=== PATIENT | female | born 1945 | race Hispanic/Latino ===

== ENCOUNTER 2019-06-19 14:42 | Emergency (ER) | payer MEDICARE ==
[~2019-06-19 14:42] MED LIST: ALPR0.25 PO
[2019-06-19 15:01] LABS: BASOPHILS % (AUTO) 0.6 % (0.0-5.0); EOSINOPHILS % (AUTO) 1.1 % (0.0-8.0); HEMATOCRIT 41.1 % (36-48); LYMPHOCYTES % (AUTO) 28.2 % (21.0-51.0); MEAN CORPUSCULAR HEMOGLOBIN 31.5 pg (27.0-33.0); MEAN CORPUSCULAR HGB CONC 34.5 g/dL (32.0-36.0); MEAN CORPUSCULAR VOLUME 91.1 fL (79-99); MONOCYTES % (AUTO) 7.8 % (3.0-13.0); PLATELET COUNT (AUTO) 148 K/uL (130-400); RED BLOOD CELL COUNT(AUTO) 4.51 MIL/uL (4.00-5.50); WHITE BLOOD COUNT (AUTO) 7.2 K/uL (4.8-10.8)
[2019-06-19 15:23] LABS: CREATININE 0.9 mg/dL (0.5-1.5); POTASSIUM 3.8 mmol/L (3.5-5.1)
[2019-06-19 16:00] LABS: APPEARANCE,URINE Clear (CLEAR); BILIRUBIN,URINE Negative (NEGATIVE); COLOR,URINE Yellow (YELLOW); GLUCOSE, URINE (UA) Negative (NEGATIVE); KETONES,URINE Negative (NEGATIVE); LEUKOCYTE ESTERASE ,URINE Trace (NEGATIVE); NITRATE,URINE Negative (NEGATIVE); OCCULT BLOOD,URINE Negative (NEGATIVE); PH,URINE 6.5 (5.0-8.0); PROTEIN,URINE Negative (NEGATIVE)
[2019-06-19 16:08] LABS: RBC,URINE None Seen /HPF (0-1); WBC,URINE 0-1 /HPF (0-1)
[2019-06-19 16:09] LABS: BACTERIA,URINE Few /HPF (None Seen); SQUAMOUS EPITHELIAL CELL,UR 0-2 /HPF (0-2)
[2019-06-19] MEDS ORDERED: LEVOFLOXACIN 500 MG/D5W 100 ML 100 ML ONE (17:11)
== END 2019-06-19 17:56 | disposition home or self-care (01) ==
LOC: EDH 14:42
DX: K57.32 Diverticulitis of large intestine without perforation or abscess without bleeding (principal); Z90.49 Acquired absence of other specified parts of digestive tract; Z90.710 Acquired absence of both cervix and uterus
CPT/HCPCS: 36415; 74176; 80048; 81001; 85025; 96365; 96367; 96375; 99284; J1956

== ENCOUNTER 2019-10-21 04:38 | Observation (INO) | payer MEDICARE ==
[~2019-10-21] VITALS: Ht 154.9 cm; Wt 59.0 kg
[2019-10-21 05:03] LABS: BASOPHILS % (AUTO) 0.7 % (0.0-5.0); EOSINOPHILS % (AUTO) 2.7 % (0.0-8.0); LYMPHOCYTES % (AUTO) 48.3 % (21.0-51.0); MEAN CORPUSCULAR HEMOGLOBIN 31.4 pg (27.0-33.0); MEAN CORPUSCULAR VOLUME 92.1 fL (79-99); MONOCYTES % (AUTO) 8.8 % (3.0-13.0); NEUTROPHILS % (AUTO) 39.4 % (40.0-77.0); PLATELET COUNT (AUTO) 114 K/uL (130-400); RED BLOOD CELL COUNT(AUTO) 4.56 MIL/uL (4.00-5.50); RED CELL DISTRIBUTION WIDTH 12.3 % (11.0-15.5); WHITE BLOOD COUNT (AUTO) 6.7 K/uL (4.8-10.8)
[2019-10-21 05:26] LABS: CREATININE 0.8 mg/dL (0.5-1.5); POTASSIUM 4.3 mmol/L (3.5-5.1)
[2019-10-21 05:31] LABS: ALBUMIN 4.1 g/dL (3.5-5.0); BILIRUBIN,TOTAL 0.6 mg/dL (0.2-1.0); TOTAL PROTEIN, SERUM 7.4 g/dL (6.0-8.3)
[2019-10-21] MEDS ORDERED: LOPERAMIDE 1 MG/7.5 ML UDCUP PO PRN (10:00)
[2019-10-21] MEDS ORDERED: LACTULOSE 20 GM/30 ML UDCUP PO PRN (10:00)
[2019-10-21] MEDS ORDERED: ONDANSETRON HCL 4 MG/2 ML VIAL IVP PRN (10:00)
[2019-10-21] MEDS ORDERED: HYDRALAZINE HCL 20 MG/ML VIAL IV PRN (10:00)
[2019-10-21] MEDS ORDERED: ACETAMINOPHEN 325 MG TAB PO PRN (10:00)
[2019-10-21 10:12] LABS: APPEARANCE,URINE Clear (CLEAR); BILIRUBIN,URINE Negative (NEGATIVE); COLOR,URINE Yellow (YELLOW); GLUCOSE, URINE (UA) Negative (NEGATIVE); KETONES,URINE Negative (NEGATIVE); LEUKOCYTE ESTERASE ,URINE Trace (NEGATIVE); NITRATE,URINE Negative (NEGATIVE); OCCULT BLOOD,URINE Negative (NEGATIVE); PH,URINE 6.5 (5.0-8.0); PROTEIN,URINE Negative (NEGATIVE)
[2019-10-21 10:19] LABS: BACTERIA,URINE Rare /HPF (None Seen); RBC,URINE 0-1 /HPF (0-1); SQUAMOUS EPITHELIAL CELL,UR Rare /HPF (0-2); WBC,URINE 0-1 /HPF (0-1)
[2019-10-21] MEDS ORDERED: ASPIRIN 81MG TAB.CHEW ONE (10:20)
[2019-10-21] MEDS ORDERED: PANTOPRAZOLE SODIUM 40 MG TABLET.DR ONE (10:20)
[2019-10-21] MEDS ORDERED: PANTOPRAZOLE SODIUM 40 MG TABLET.DR PO SCH (10:30)
[2019-10-21] MEDS ORDERED: ENOXAPARIN SODIUM 30 MG/0.3 ML SQ SCH (10:45)
[2019-10-21] MEDS ORDERED: ACETAMINOPHEN 325 MG TAB ONE ×2 (12:12→19:54)
--- NOTE | 2019-10-21 12:40 | NUR ---
DYSPHAGIA EVAL COMPLETED. -S/S OF ASPIRATION. RECOMMEND REGULAR TEXTURE, THIN LIQUIDS; PILLS WHOLE WITH LIQUIDS. Addendum: 10/21/19 at 1413 by VAMSI SYLVESTER, [facility] Amended: Links added.
--- NOTE | 2019-10-21 13:00 | NUR ---
COGNITIVE-LINGUISTIC EVAL COMPLETED. WITHIN FUNCTIONAL LIMITS. EVALUATION: Pt AAOX3. Pt REQUESTS WANTS AND NEEDS INDEPENDENTLY. Pt INTELLIGIBLE AT 100% ACCURACY TO THE UNFAMILIAR LISTENER. Pt COMMUNICATING AT CONVERSATIONAL LEVEL WITH NO DEFICITS IDENTIFIED AT THIS TIME. Pt COMPLETED COGNITIVE-LINGUISTIC EVALUATION TARGETING: ORIENTATION, ATTENTION/CONCENTRATION, MEMORY (IMMEDIATE, SHORT-TERM AND LONG-TERM), PROBLEM SOLVING, LOGIC/REASONING/INFERENCE, THOUGHT ORGANIZATION, FUNCTIONAL MATH AND TELLING TIME. Pt ABLE TO COMPLETE TASKS WITH CORRECT AND TIMELY ANSWERS TO ALL SECTIONS. G-CODES SPOKEN LANGUAGE EXPRESSION: [id number] Addendum: 10/21/19 at [address] [facility] Amended: Links added.
--- NOTE | 2019-10-21 13:35 | NUR ---
patient still in ER,department awaiting for patient to be transferred to medical floor in order to be able to initiate skilled Physical Therapy Evaluation. Addendum: 10/21/19 at 1336 by LIAM THAYER, PT PT Amended: Links added.
[2019-10-22 04:28] LABS: BASOPHILS % (AUTO) 0.9 % (0.0-5.0); EOSINOPHILS % (AUTO) 3.8 % (0.0-8.0); HEMATOCRIT 40.1 % (36-48); LYMPHOCYTES % (AUTO) 37.7 % (21.0-51.0); MEAN CORPUSCULAR HEMOGLOBIN 30.7 pg (27.0-33.0); MEAN CORPUSCULAR HGB CONC 33.4 g/dL (32.0-36.0); MEAN CORPUSCULAR VOLUME 91.8 fL (79-99); NEUTROPHILS % (AUTO) 48.4 % (40.0-77.0); PLATELET COUNT (AUTO) 101 K/uL (130-400); RED BLOOD CELL COUNT(AUTO) 4.37 MIL/uL (4.00-5.50); RED CELL DISTRIBUTION WIDTH 12.4 % (11.0-15.5); WHITE BLOOD COUNT (AUTO) 4.7 K/uL (4.8-10.8)
[2019-10-22 04:50] LABS: ALANINE AMINOTRANSFERASE 77 U/L (12-78); ALBUMIN 3.6 g/dL (3.5-5.0); ASPARTATE AMINOTRANSFERASE 41 U/L (10-37); BILIRUBIN,TOTAL 0.7 mg/dL (0.2-1.0); CARBON DIOXIDE 25 mmol/L (21-32); CHLORIDE 107 mmol/L (101-111); CREATININE 0.7 mg/dL (0.5-1.5); GLOMERULAR FILTR. RATE CALC 88 mL/min (>60); GLUCOSE,RANDOM 92 mg/dL (70-105); POTASSIUM 3.8 mmol/L (3.5-5.1); SODIUM SERUM 140 mmol/L (136-145); TOTAL PROTEIN, SERUM 6.6 g/dL (6.0-8.3); UREA NITROGEN, BLOOD 26 mg/dL (7-18)
[2019-10-22 04:58] LABS: CRP QUANTITATIVE < 2.00 mg/L (0.00-9.0)
[2019-10-22 06:39] LABS: INR 0.99 (0.85-1.15); PARTIAL THROMBOPLASTIN TIME 27.9 SEC (26.3-35.5); PROTHROMBIN TIME 10.7 SEC (9.6-11.6)
--- NOTE | 2019-10-22 07:56 | NUR ---
Patient still in ER,department awaiting for patient to be transferred to medical floor in order to be able to initiate skilled Physical Therapy Evaluation. Addendum: 10/22/19 at 0805 by LIAM THAYER, PT PT Amended: Links added.
[2019-10-22] MEDS ORDERED: ENOXAPARIN SODIUM 30 MG/0.3 ML SQ ONE (08:20)
[2019-10-22] MEDS ORDERED: PANTOPRAZOLE SODIUM 40 MG TABLET.DR ONE (08:20)
[2019-10-22] MEDS ORDERED: ASPIRIN 81MG TAB.CHEW ONE (08:20)
[2019-10-22] MEDS ORDERED: ASPIRIN 81MG TAB.CHEW PO SCH (09:00)
--- NOTE | 2019-10-22 10:31 | NUR ---
report received from ER Nurse Jeaneth. pt received in stable condition no complaints offered. will cont to monitor
--- NOTE | 2019-10-22 12:04 | NUR ---
Spoke with Jeaneth VILLA Morning medications given in ER.
[2019-10-22 12:30] VITALS: BP 126/82
--- NOTE | 2019-10-22 15:29 | NUR ---
RD NOTIFICATION Pt admitted with TIA. Placed on Heart Healthy diet order. Observation status. Seen by ST, -S/S aspiration. Monitored labs: BUN 26, AST 41. Recommend continue Heart healthy diet order Recommend Ensure QD RD to continue to monitor. Please notify as additional nutrition concerns arise. Thank you.
[2019-10-22] MEDS ORDERED: ASPI-1005 PO (15:39)
[2019-10-22 16:30] VITALS: BP 125/70
--- NOTE | 2019-10-22 16:51 | NUR ---
DC ORDERS PT PENDING DC, PCP AWARE OF ELEVATED D DIMER
--- NOTE | 2019-10-22 18:00 | NUR ---
DC PT AWAKE, ALERT, AND ORIENTED. DC HOME INSTRUCTIONS GIVEN TO PT, ACKNOWLEDGED ALL INFORMATION, ALL QUESTIONS ANSWERED. PT MADE AWARE TO RETURN TO ER IF NEEDED. MADE AWARE RX SENT ELECTRONICALLY TO HER PHARMACY. AWAITING FOR TRANSPORTATION.
--- NOTE | 2019-10-22 18:42 | NUR ---
cm note per spouse, pt resides at home with spouse, independent with adls/ambulation, no dme, no home services. dc plan is home at dc. states no dc needs. Addendum: 10/22/19 at 1849 by JOANNE ERVIN CM Amended: Links added.
== END 2019-10-22 18:48 | disposition home or self-care (01) ==
LOC: EDH 04:38 → EDHIP 09:17 → 4AH 10-22 11:58
PROVIDERS: ADMIT Internal Medicine Critical Care Medicine; ATTEND Internal Medicine Critical Care Medicine
DX: G45.9 Transient cerebral ischemic attack, unspecified (principal); Z20.828 Contact with and (suspected) exposure to other viral communicable diseases; E03.9 Hypothyroidism, unspecified; R51 Headache; Z90.710 Acquired absence of both cervix and uterus; Z90.49 Acquired absence of other specified parts of digestive tract
CPT/HCPCS: 36415 ×2; 70450; 71045; 80053 ×2; 81001; 82550; 82728; 82948; 84145; 84484; 85025 ×2; 85378; 85610; 85730; 86140; 87426; 92522; 92610; 93005; 93880; 97161; 99285; G0378 ×16; G8978; G8979; G8980; G8981; G8982; G8983; J1650; U0003

== ENCOUNTER 2019-10-26 20:12 | Emergency (ER) | payer MEDICARE ==
[~2019-10-26 20:12] MED LIST changes: +ASPI-1005 PO
[2019-10-26] MEDS ORDERED: SODIUM CHLORIDE 0.9% 1000ML 1,000 ML IV ONE (20:13)
[2019-10-26 20:53] LABS: BASOPHILS % (AUTO) 0.7 % (0.0-5.0); HEMATOCRIT 39.8 % (36-48); LYMPHOCYTES % (AUTO) 39.3 % (21.0-51.0); MEAN CORPUSCULAR HEMOGLOBIN 31.4 pg (27.0-33.0); MEAN CORPUSCULAR HGB CONC 34.7 g/dL (32.0-36.0); MEAN CORPUSCULAR VOLUME 90.7 fL (79-99); MONOCYTES % (AUTO) 9.7 % (3.0-13.0); PLATELET COUNT (AUTO) 134 K/uL (130-400); RED BLOOD CELL COUNT(AUTO) 4.39 MIL/uL (4.00-5.50); RED CELL DISTRIBUTION WIDTH 12.1 % (11.0-15.5)
[2019-10-26 20:56] LABS: APPEARANCE,URINE Clear (CLEAR); BILIRUBIN,URINE Negative (NEGATIVE); GLUCOSE, URINE (UA) Negative (NEGATIVE); KETONES,URINE Negative (NEGATIVE); LEUKOCYTE ESTERASE ,URINE Trace (NEGATIVE); NITRATE,URINE Negative (NEGATIVE); OCCULT BLOOD,URINE Negative (NEGATIVE); PROTEIN,URINE Negative (NEGATIVE)
[2019-10-26] MEDS ORDERED: ONDANSETRON HCL 4 MG/2 ML VIAL ONE (20:58)
[2019-10-26 21:06] LABS: INR 0.99 (0.85-1.15); PARTIAL THROMBOPLASTIN TIME 26.2 SEC (26.3-35.5); PROTHROMBIN TIME 10.7 SEC (9.6-11.6)
[2019-10-26 21:08] LABS: COLOR,URINE COLORLESS (YELLOW)
[2019-10-26 21:09] LABS: CREATININE 0.7 mg/dL (0.5-1.5); POTASSIUM 4.2 mmol/L (3.5-5.1)
[2019-10-26 21:11] LABS: BACTERIA,URINE None Seen /HPF (None Seen); RBC,URINE None Seen /HPF (0-1); SQUAMOUS EPITHELIAL CELL,UR 0-2 /HPF (0-2); TRANSITIONAL EPI CELLS,URINE Few /HPF (None Seen); WBC,URINE 0-1 /HPF (0-1)
[2019-10-26 21:14] LABS: ALBUMIN 4.2 g/dL (3.5-5.0); BILIRUBIN,TOTAL 0.6 mg/dL (0.2-1.0); TOTAL PROTEIN, SERUM 7.3 g/dL (6.0-8.3)
[2019-10-26] MEDS ORDERED: ASPIRIN 325 MG TABLET ONE (22:46)
== END 2019-10-26 23:58 | disposition home or self-care (01) ==
LOC: EDH 20:12
DX: R55 Syncope and collapse (principal); R51 Headache; R42 Dizziness and giddiness; R53.1 Weakness; Z90.710 Acquired absence of both cervix and uterus; Z98.890 Other specified postprocedural states; E07.9 Disorder of thyroid, unspecified; Z86.19 Personal history of other infectious and parasitic diseases
CPT/HCPCS: 36415; 70450; 71045; 80053; 81001; 82550; 84443; 84484; 85025; 85610; 85730; 93005; 96374; 99285; J2405; J7030

== ENCOUNTER → 2019-12-02 | Outpatient (CLI) | payer MEDICARE | END | disposition home or self-care (01) | LOC: SHCH 15:10 | PROVIDERS: ATTEND Internal Medicine Cardiovascular Disease | DX: I48.0 Paroxysmal atrial fibrillation (principal); I47.1 Supraventricular tachycardia | CPT/HCPCS: 93306; 93356 ==

== ENCOUNTER 2019-12-09 02:07 | Emergency (ER) | payer MEDICARE ==
[2019-12-09 03:15] LABS: APPEARANCE,URINE Clear (CLEAR); BILIRUBIN,URINE Negative (NEGATIVE); COLOR,URINE Yellow (YELLOW); GLUCOSE, URINE (UA) Negative (NEGATIVE); KETONES,URINE Negative (NEGATIVE); LEUKOCYTE ESTERASE ,URINE Negative (NEGATIVE); NITRATE,URINE Negative (NEGATIVE); OCCULT BLOOD,URINE Negative (NEGATIVE); PROTEIN,URINE Negative (NEGATIVE); UROBILINOGEN,URINE 0.2 mg/dL (0.2-1.0)
[2019-12-09 03:15] LABS: BASOPHILS % (AUTO) 0.8 % (0.0-5.0); EOSINOPHILS % (AUTO) 1.8 % (0.0-8.0); HEMATOCRIT 41.2 % (36-48); LYMPHOCYTES % (AUTO) 37.6 % (21.0-51.0); MEAN CORPUSCULAR VOLUME 91.2 fL (79-99); MONOCYTES % (AUTO) 8.7 % (3.0-13.0); NEUTROPHILS % (AUTO) 50.9 % (40.0-77.0); PLATELET COUNT (AUTO) 156 K/uL (130-400); RED BLOOD CELL COUNT(AUTO) 4.52 MIL/uL (4.00-5.50); RED CELL DISTRIBUTION WIDTH 12.3 % (11.0-15.5)
[2019-12-09 03:25] LABS: CREATININE 0.7 mg/dL (0.5-1.5); POTASSIUM 3.7 mmol/L (3.5-5.1)
[2019-12-09 03:32] LABS: B-TYPE NATRIURETIC PEPTIDE 9 pg/mL (0-100); PARTIAL THROMBOPLASTIN TIME 29.1 SEC (26.3-35.5); PROTHROMBIN TIME 10.8 SEC (9.6-11.6)
[2019-12-09 03:37] LABS: ALBUMIN 4.3 g/dL (3.5-5.0); BILIRUBIN,TOTAL 0.7 mg/dL (0.2-1.0); THYROID STIMULATING HORMONE 2.64 uIU/mL (0.36-3.74); TOTAL PROTEIN, SERUM 7.7 g/dL (6.0-8.3)
== END 2019-12-09 06:33 | disposition home or self-care (01) ==
LOC: EDH 02:07
DX: R00.2 Palpitations (principal); F41.9 Anxiety disorder, unspecified; Z90.49 Acquired absence of other specified parts of digestive tract; Z90.710 Acquired absence of both cervix and uterus
CPT/HCPCS: 36415; 71045; 80053; 81003; 82550; 83605; 83735; 83880; 84443; 84484; 85025; 85610; 85730; 93005

== ENCOUNTER 2020-01-24 00:47 | Emergency (ER) | payer MEDICARE ==
[2020-01-24 01:10] LABS: BASOPHILS % (AUTO) 0.6 % (0.0-5.0); EOSINOPHILS % (AUTO) 2.2 % (0.0-8.0); HEMATOCRIT 37.6 % (36-48); LYMPHOCYTES % (AUTO) 39.3 % (21.0-51.0); MEAN CORPUSCULAR HEMOGLOBIN 31.1 pg (27.0-33.0); MEAN CORPUSCULAR HGB CONC 33.8 g/dL (32.0-36.0); MEAN CORPUSCULAR VOLUME 91.9 fL (79-99); MONOCYTES % (AUTO) 7.9 % (3.0-13.0); NEUTROPHILS % (AUTO) 49.8 % (40.0-77.0); PLATELET COUNT (AUTO) 123 K/uL (130-400); RED BLOOD CELL COUNT(AUTO) 4.09 MIL/uL (4.00-5.50); WHITE BLOOD COUNT (AUTO) 6.5 K/uL (4.8-10.8)
[2020-01-24 01:16] LABS: CREATININE 0.8 mg/dL (0.5-1.5); POTASSIUM 3.4 mmol/L (3.5-5.1)
[2020-01-24 01:21] LABS: ALBUMIN 3.9 g/dL (3.5-5.0); BILIRUBIN,TOTAL 0.4 mg/dL (0.2-1.0); TOTAL PROTEIN, SERUM 6.8 g/dL (6.0-8.3)
[2020-01-24 01:24] LABS: INR 1.06 (0.85-1.15); PARTIAL THROMBOPLASTIN TIME 30.6 SEC (26.3-35.5); PROTHROMBIN TIME 11.4 SEC (9.6-11.6)
[2020-01-24 01:28] LABS: THYROID STIMULATING HORMONE 2.05 uIU/mL (0.36-3.74)
== END 2020-01-24 02:29 | disposition home or self-care (01) ==
LOC: EDH 00:47
DX: R07.89 Other chest pain (principal); R06.02 Shortness of breath; R11.0 Nausea; F41.9 Anxiety disorder, unspecified; E07.9 Disorder of thyroid, unspecified; G45.9 Transient cerebral ischemic attack, unspecified; Z90.49 Acquired absence of other specified parts of digestive tract
CPT/HCPCS: 36415; 71045; 80053; 82550; 83690; 83880; 84443; 84484; 85025; 85610; 85730; 93005

== ENCOUNTER 2020-08-31 05:11 | Emergency (ER) | payer MEDICARE ==
[~2020-08-31] VITALS: Ht 154.9 cm; Wt 57.6 kg
[2020-08-31] MEDS ORDERED: HYDR-3421 PO (06:05)
== END 2020-08-31 06:21 | disposition home or self-care (01) ==
LOC: EDH 05:11
DX: F45.8 Other somatoform disorders (principal); F41.9 Anxiety disorder, unspecified; E78.00 Pure hypercholesterolemia, unspecified; Z90.710 Acquired absence of both cervix and uterus; Z90.49 Acquired absence of other specified parts of digestive tract; Z79.01 Long term (current) use of anticoagulants; Z79.82 Long term (current) use of aspirin; Z79.899 Other long term (current) drug therapy
CPT/HCPCS: 71045; 93005

== ENCOUNTER 2021-11-28 03:48 | Observation (INO) | payer MEDICARE ==
[~2021-11-28] VITALS: Ht 154.9 cm; Wt 61.1 kg
[~2021-11-28 03:48] MED LIST changes: +HYDR-3421 PO
[2021-11-28 04:05] LABS: BASOPHILS % (AUTO) 0.7 % (0.0-5.0); EOSINOPHILS % (AUTO) 2.8 % (0.0-8.0); HEMATOCRIT 40.3 % (36-48); LYMPHOCYTES % (AUTO) 27.3 % (21.0-51.0); MEAN CORPUSCULAR HEMOGLOBIN 30.6 pg (27.0-33.0); MEAN CORPUSCULAR VOLUME 90.2 fL (79-99); MONOCYTES % (AUTO) 12.3 % (3.0-13.0); NEUTROPHILS % (AUTO) 56.7 % (40.0-77.0); PLATELET COUNT (AUTO) 144 K/uL (130-400); RED BLOOD CELL COUNT(AUTO) 4.47 MIL/uL (4.00-5.50); RED CELL DISTRIBUTION WIDTH 12.5 % (11.0-15.5); WHITE BLOOD COUNT (AUTO) 5.4 K/uL (4.8-10.8)
[2021-11-28 04:15] LABS: CREATININE 0.7 mg/dL (0.5-1.5); POTASSIUM 3.6 mmol/L (3.5-5.1)
[2021-11-28 04:22] LABS: TOTAL PROTEIN, SERUM 6.9 g/dL (6.0-8.3)
[2021-11-28] MEDS ORDERED: TEMAZEPAM 15 MG CAPSULE PO PRN (06:30)
[2021-11-28] MEDS ORDERED: CLONIDINE HCL 0.1 MG TABLET PO PRN (06:30)
[2021-11-28] MEDS ORDERED: ACETAMINOPHEN 325 MG TAB PO PRN (06:30)
[2021-11-28] MEDS ORDERED: TRAMADOL HCL 50 MG TABLET PO PRN (06:30)
[2021-11-28] MEDS ORDERED: DOCUSATE SODIUM 100 MG CAP PO PRN (06:30)
[2021-11-28] MEDS ORDERED: LABETALOL 20MG SYG IV PRN (06:30)
[2021-11-28] MEDS ORDERED: ONDANSETRON 4MG INJ IVP PRN (06:30)
[2021-11-28] MEDS ORDERED: HYDRALAZINE 20MG/ML VIAL IV PRN (06:30)
[2021-11-28] MEDS ORDERED: ACETAMINOPHEN 650 MG SUPPOSITORY RC PRN (06:30)
[2021-11-28] MEDS ORDERED: LACTULOSE 20 GM/30 ML UDCUP PO PRN (06:30)
[2021-11-28] MEDS ORDERED: GLUCAGON 1MG KIT 1 MG ML IM PRN (07:00)
[2021-11-28] MEDS ORDERED: KCL 20 MEQ ERTAB PO PRN (07:00)
[2021-11-28] MEDS ORDERED: POTASSIUM CHLORIDE 20MEQ/100ML 100 ML IV PRN (07:00)
[2021-11-28] MEDS ORDERED: DEXTROSE 50%-WATER 50 ML DISP.SYRIN IV PRN (07:00)
[2021-11-28] MEDS ORDERED: POTASSIUM CHLORIDE 10% ELIXIR 20 MEQ/15 ML UDCUP PO PRN (07:00)
[2021-11-28] MEDS ORDERED: MAGNESIUM 2GM PREMIX 50ML 50 ML IV PRN (07:00)
[2021-11-28] MEDS: INSULIN HUMULIN R 100 UNIT/ML 3ML SQ SCH ×4 (07:28→20:25)
[2021-11-28] MEDS ORDERED: APIX5TAB PO (09:25)
[2021-11-28] MEDS ORDERED: ATOR10TA69 PO (10:48)
[2021-11-28] MEDS ORDERED: LEVO25CA4 PO (10:48)
[2021-11-28] MEDS ORDERED: ALEN70TA80 PO (10:48)
[2021-11-28] MEDS ORDERED: FLUT16H NASAL (10:48)
[2021-11-28] MEDS: APIXABAN 5 MG TABLET PO SCH ×2 (12:58→20:24)
[2021-11-28] MEDS ORDERED: FLUTICASONE PROPIONATE 50MCG/SPRAY 16 GM BOTTLE EN PRN (14:00)
[2021-11-28] MEDS ORDERED: LORAZEPAM 0.5 MG TABLET PO PRN (14:00)
[2021-11-28 14:05] VITALS: BP 120/69
[2021-11-28] MEDS: SERTRALINE HCL 50 MG TABLET PO ONE ×2 (14:30→14:44)
[2021-11-28 16:00] VITALS: BP 128/69
[2021-11-28 19:17] VITALS: BP 128/72
[2021-11-28 20:58] VITALS: BP 133/74
[2021-11-28 20:59] VITALS: BP 145/77
[2021-11-28] MEDS ORDERED: ATORVASTATIN 10 MG TABLET PO SCH (21:00)
[2021-11-28] MEDS ORDERED: APIXABAN 5 MG TABLET PO SCH (21:00)
[2021-11-28 21:01] VITALS: BP 140/83
[2021-11-29 00:42] VITALS: BP 112/56
[2021-11-29 03:42] VITALS: BP 122/73
[2021-11-29 03:55] LABS: BASOPHILS % (AUTO) 0.8 % (0.0-5.0); HEMATOCRIT 40.3 % (36-48); LYMPHOCYTES % (AUTO) 41.2 % (21.0-51.0); MEAN CORPUSCULAR HEMOGLOBIN 31.1 pg (27.0-33.0); MEAN CORPUSCULAR HGB CONC 34.2 g/dL (32.0-36.0); MEAN CORPUSCULAR VOLUME 90.8 fL (79-99); MONOCYTES % (AUTO) 12.5 % (3.0-13.0); NEUTROPHILS % (AUTO) 42.3 % (40.0-77.0); PLATELET COUNT (AUTO) 137 K/uL (130-400); RED BLOOD CELL COUNT(AUTO) 4.44 MIL/uL (4.00-5.50); RED CELL DISTRIBUTION WIDTH 12.5 % (11.0-15.5)
[2021-11-29 04:11] LABS: CREATININE 0.8 mg/dL (0.5-1.5); MAGNESIUM 2.2 mg/dL (1.80-2.40); PHOSPHORUS 3.9 mg/dL (2.5-4.9); POTASSIUM 3.9 mmol/L (3.5-5.1)
[2021-11-29] MEDS ORDERED: LEVOTHYROXINE 25 MCG TABLET PO SCH (06:30)
[2021-11-29] MEDS: INSULIN HUMULIN R 100 UNIT/ML 3ML SQ SCH ×2 (06:33→11:30)
[2021-11-29 08:00] VITALS: BP 120/72
[2021-11-29] MEDS: APIXABAN 5 MG TABLET PO SCH (08:41)
[2021-11-29] MEDS ORDERED: SERTRALINE HCL 50 MG TABLET PO SCH (09:00)
[2021-11-29 12:00] VITALS: BP 118/77
[2021-11-29] MEDS ORDERED: TRAZ-187 PO (14:01)
== END 2021-11-29 15:04 | disposition home or self-care (01) ==
LOC: EDH 03:48 → EDHIP 06:10 → 2AH 13:18
PROVIDERS: ADMIT Internal Medicine Pulmonary Disease; ATTEND Internal Medicine Pulmonary Disease
DX: R07.89 Other chest pain (principal); Z20.822 Contact with and (suspected) exposure to COVID-19; I10 Essential (primary) hypertension; I48.91 Unspecified atrial fibrillation; E03.9 Hypothyroidism, unspecified; M81.0 Age-related osteoporosis without current pathological fracture; G47.00 Insomnia, unspecified; K21.9 Gastro-esophageal reflux disease without esophagitis; F41.9 Anxiety disorder, unspecified; F32.A Depression, unspecified; Z79.01 Long term (current) use of anticoagulants; Z90.710 Acquired absence of both cervix and uterus; Z90.49 Acquired absence of other specified parts of digestive tract; Z79.82 Long term (current) use of aspirin
CPT/HCPCS: 99285; 84443; 84484 ×3; 80053; 83880; 85025 ×2; 82948 ×2; 36415 ×2; 87635; 71045 ×2; 93005 ×2; 83735; 84100; 80048; 93306; 93356; G0378 ×32

== ENCOUNTER → 2022-06-25 | Outpatient (CLI) | payer MEDICARE ==
[~2022-06-25] MED LIST changes: +ALEN70TA80 PO; -ALPR0.25 PO; +APIX5TAB PO; -ASPI-1005 PO; +ATOR10TA69 PO; +DEXTROSE 50%-WATER 50 ML DISP.SYRIN IV ONE; +FLUT16H NASAL; -HYDR-3421 PO; +LEVO25CA4 PO; +TRAZ-187 PO
== END | disposition home or self-care (01) ==
LOC: SHCH 14:32
PROVIDERS: ATTEND Internal Medicine Cardiovascular Disease
DX: I87.2 Venous insufficiency (chronic) (peripheral) (principal)
CPT/HCPCS: 93970; J7070

== ENCOUNTER 2023-01-21 00:07 | Emergency (ER) | payer MEDICARE ==
[~2023-01-21] VITALS: Ht 154.9 cm; Wt 59.0 kg
[~2023-01-21 00:07] MED LIST changes: -DEXTROSE 50%-WATER 50 ML DISP.SYRIN IV ONE
[2023-01-21 00:55] LABS: APPEARANCE,URINE CLEAR (CLEAR); BILIRUBIN,URINE NEGATIVE (NEGATIVE); COLOR,URINE COLORLESS (YELLOW); GLUCOSE, URINE (UA) NEGATIVE (NEGATIVE); KETONES,URINE NEGATIVE (NEGATIVE); LEUKOCYTE ESTERASE ,URINE 25 Leu/uL (NEGATIVE); NITRATE,URINE NEGATIVE (NEGATIVE); OCCULT BLOOD,URINE NEGATIVE (NEGATIVE); PROTEIN,URINE NEGATIVE (NEGATIVE); UROBILINOGEN,URINE 0.2 mg/dL (0.2-1.0)
[2023-01-21 00:57] LABS: BASOPHILS # (AUTO) 0.05 K/uL (0.00-0.20); EOSINOPHILS # (AUTO) 0.06 K/uL (0.00-0.70); EOSINOPHILS % (AUTO) 1.2 % (0.0-8.0); IMMATURE GRANULOCYTE ABSOLUTE 0.01 K/uL (0-1); LYMPHOCYTES # (AUTO) 1.9 K/uL (1.0-4.8); LYMPHOCYTES % (AUTO) 37.1 % (21.0-51.0); MEAN CORPUSCULAR HEMOGLOBIN 31.8 pg (27.0-33.0); MEAN CORPUSCULAR HGB CONC 34.7 g/dL (32.0-36.0); MEAN CORPUSCULAR VOLUME 91.9 fL (79-99); MONOCYTES # (AUTO) 0.5 K/uL (0.1-1.0); NEUTROPHILS # (AUTO) 2.6 K/uL (1.8-7.7); NEUTROPHILS % (AUTO) 51.5 % (40.0-77.0); PLATELET COUNT (AUTO) 133 K/uL (130-400); RED BLOOD CELL COUNT(AUTO) 4.68 MIL/uL (4.00-5.50); RED CELL DISTRIBUTION WIDTH 12.4 % (11.0-15.5)
[2023-01-21 00:58] LABS: ADD UA MICROSCOPIC YES
[2023-01-21 01:00] LABS: BACTERIA,URINE RARE /HPF (None Seen); RBC,URINE 0-1 /HPF (0-1)
[2023-01-21 01:08] LABS: CREATININE 0.7 mg/dL (0.5-1.5); POTASSIUM 4.5 mmol/L (3.5-5.1)
[2023-01-21 01:10] LABS: BILIRUBIN,TOTAL 0.6 mg/dL (0.2-1.0); TOTAL PROTEIN, SERUM 7.3 g/dL (6.0-8.3)
[2023-01-21 01:11] LABS: SARS-CoV-2, RNA, NAAT NEGATIVE SARS CoV-2 (NEGATIVE)
[2023-01-21 01:17] LABS: INFLUENZA TYPE A Negative For Type A (NEGATIVE); INFLUENZA TYPE B Negative For Type B (NEGATIVE)
[2023-01-21] MEDS ORDERED: LACTATED RINGERS 1000ML 1,000 ML IV ONE (02:30)
[2023-01-21] MEDS ORDERED: METOCLOPRAMIDE 10 MG/2 ML VIAL IVP ONE (02:30)
[2023-01-21] MEDS ORDERED: MECLIZINE HCL 25 MG TABLET PO ONE (02:30)
[2023-01-21 02:38] LABS: MAGNESIUM 2.3 mg/dL (1.80-2.40); THYROID STIMULATING HORMONE 3.07 uIU/mL (0.36-3.74)
[2023-01-21] MEDS ORDERED: PHEN-847 PO (03:34)
[2023-01-21] MEDS ORDERED: MECL-302 PO (03:34)
[2023-01-21] MEDS ORDERED: CEPH500B PO (03:34)
[2023-01-21] MEDS ORDERED: CEPHALEXIN 500 MG CAPSULE PO ONE (04:00)
[2023-01-21] MEDS ORDERED: PHENAZOPYRIDINE HCL 200 MG TABLET PO ONE (04:00)
[2023-01-21 04:43] VITALS: BP 126/68; PULSE 89; RESP 16; O2SAT 100
== END 2023-01-21 04:41 | disposition home or self-care (01) ==
LOC: EDH 00:07 → UNDOADMIN 00:08 → EDHIP 00:08 → EDH 04:41
DX: N39.0 Urinary tract infection, site not specified (principal); R42 Dizziness and giddiness; I10 Essential (primary) hypertension; E03.9 Hypothyroidism, unspecified; I48.91 Unspecified atrial fibrillation; Z20.822 Contact with and (suspected) exposure to COVID-19
CPT/HCPCS: 99285; 96374; 71045; 87635; 96361; 84443; 83735; 84484; 80053; 85025; 87804 ×2; 81001; 36415; 93005; C9803; J7120; J2765

== ENCOUNTER → 2023-02-17 | Outpatient (CLI) | payer MEDICARE ==
[~2023-02-17] MED LIST changes: +CEPH500B PO; +MECL-302 PO; +PHEN-847 PO
[2023-02-17 13:48] LABS: THYROID STIMULATING HORMONE 1.66 uIU/mL (0.36-3.74)
== END | disposition home or self-care (01) ==
LOC: LAB 08:49
PROVIDERS: ATTEND Internal Medicine Cardiovascular Disease
DX: I48.0 Paroxysmal atrial fibrillation (principal); I30.9 Acute pericarditis, unspecified; E03.9 Hypothyroidism, unspecified; M81.0 Age-related osteoporosis without current pathological fracture; I87.1 Compression of vein; I87.2 Venous insufficiency (chronic) (peripheral); E78.49 Other hyperlipidemia; Z86.73 Personal history of transient ischemic attack (TIA), and cerebral infarction without residual deficits; Z79.899 Other long term (current) drug therapy
CPT/HCPCS: 36415; 84443; 84484; 85651; 86140

== ENCOUNTER → 2023-03-04 | Outpatient (CLI) | payer MEDICARE ==
[~2023-03-04] MED LIST changes: +REGADENOSON 0.4 MG/5 ML PF SYG IVP ONE
== END | disposition home or self-care (01) ==
LOC: SHCH 09:13
PROVIDERS: ATTEND Internal Medicine Cardiovascular Disease
DX: I20.9 Angina pectoris, unspecified (principal)
CPT/HCPCS: 78452; 96374; 93017; J2785; A9500 ×2

== ENCOUNTER → 2023-03-31 | Outpatient (CLI) | payer MEDICARE ==
[~2023-03-31] MED LIST changes: -REGADENOSON 0.4 MG/5 ML PF SYG IVP ONE
== END | disposition home or self-care (01) ==
LOC: SHCH 09:46
PROVIDERS: ATTEND Internal Medicine Cardiovascular Disease
DX: I20.9 Angina pectoris, unspecified (principal); E78.5 Hyperlipidemia, unspecified
CPT/HCPCS: 93306

== ENCOUNTER → 2023-04-02 | Outpatient (CLI) | payer MEDICARE | END | disposition home or self-care (01) | LOC: SHCH 10:25 | PROVIDERS: ATTEND Internal Medicine Cardiovascular Disease | DX: I73.9 Peripheral vascular disease, unspecified (principal) | CPT/HCPCS: 93925 ==

== ENCOUNTER → 2024-08-30 | Outpatient (CLI) | payer MEDICARE ==
[~2024-08-30] MED LIST changes: -LEVO25CA4 PO; +LEVO25CA5 PO
--- NOTE | 2024-08-30 14:41 | HMCIMG ---
CT ABD/PEL WO CON RENAL/APPY HISTORY: Renal stone COMPARISON: None TECHNIQUE: Multiple sequential axial images of the abdomen and pelvis were obtained from the dome of the diaphragm through symphysis pubis. Patient was not given contrast through intravenous route. Oral contrast was not given. FINDINGS: No pleural effusion is seen bilaterally. There is no evidence of parenchymal disease or pulmonary nodule of the visualized lower lungs. Degenerative changes of the thoracolumbar spine are present. The heart is not enlarged. Post cholecystectomy changes are seen. The liver, spleen, adrenal glands and pancreas are unremarkable. No hydronephrosis is seen on the left. There is minimal right scoliosis with 5.4 mm renal stone in the right proximal ureter. Fecal material is seen in the colon. There are normal size retroperitoneal and mesenteric lymph nodes. No ascites is seen. No CT evidence of acute appendicitis is seen. Pelvic sidewalls are symmetric bilaterally. Bladder is poorly distended. IMPRESSION: 1. There is minimal right scoliosis with 5.4 mm renal stone in the right proximal ureter. CT was performed with one or more following dose reduction techniques: automated exposure control, adjustment of the mA and kv according to patient's size, or use of a iterative reconstruction technique.
== END | disposition home or self-care (01) ==
LOC: RAH 13:14
PROVIDERS: ATTEND Family Medicine
DX: N32.89 Other specified disorders of bladder (principal); R19.5 Other fecal abnormalities; M47.815 Spondylosis without myelopathy or radiculopathy, thoracolumbar region; Z90.49 Acquired absence of other specified parts of digestive tract
CPT/HCPCS: 74176

== ENCOUNTER 2025-02-06 20:02 | Emergency (ER) | payer MEDICARE ==
[~2025-02-06] VITALS: Ht 154.9 cm; Wt 59.0 kg
--- NOTE | 2025-02-06 20:16 | ERN ---
ED Note History of Present Illness Stated Complaint: DIZZINESS,GBW, NAUSEA, HEADACHE Chief Complaint: Multiple Complaints Time Seen by MD: 20:09 Dictation: 77-year-old female presents to [facility] emergency department complaining of dizziness. Discusses that over the course of the last day has become increasingly dizzy which is accompanied by worsening in particular with changes in position. Today accompanied with the dizziness is nausea, dryness of the mouth, becoming short of breath after walking short distances. Denies chest pain pleurisy or dyspnea. There has been no dulce emesis there has been no diarrhea. The patient does experience a fullness over the bladder, however denies urgency frequency dysuria pyuria hematuria. The remainder of the review of systems is negative. Patient stated that around 6 p.m. ate a [employer] bar she was laying in bed when she all of a sudden started feeling severe dizziness with a sensation of all the items in the room spinning. She has had similar episode in the past many years ago. No history of any blurred vision facial droop diplopia motor weakness or seizure activity. No history of any neck pain. No history of any hearing loss. No fever chills. She also admits to a headache mostly in the bitemporal area frontal and vertex. No halos or photosensitivity. No lacrimation or nasal drainage. Temperature 97.4 pulse 94 respirations 20 blood pressure 168/73 with a pulse oximetry of 99% on room air Chronic medical problems include history of atrial fibrillation was on Eliquis p er Dr. Houston Stephenson, hypertension, hypothyroidism, history of osteoporosis. She had similar episode of vertigo many years ago. surgical history includes cholecystectomy and a partial hysterectomy. Allergies: Coded Allergies: No Known Allergies (Unverified Allergy, 12/07/12) Home Meds Active Scripts Prednisone (Prednisone) 20 Mg Tablet, 1 TAB PO AD for 6 Days, #14 TAB 0 Refills TAKE 1 TAB BY MOUTH THREE TIMES PER DAY X3 DAYS, THEN TAKE 1 TAB BY MOUTH TWICE A DAY X2 DAYS, THEN TAKE 1 TAB BY MOUTH ONCE A DAY X1 DAY. Prov:MEGHANA LUNDY MD 02/06/25 Meclizine HCl (Meclizine HCl) 25 Mg Tablet, 25 MG PO TID for vertigo for 10 Days, #30 TAB 0 Refills Prov:MEGHANA LUNDY MD 02/06/25 Phenazopyridine HCl (Pyridium) 200 Mg Tab, 200 MG PO TIDPC, #5 TAB 0 Refills TAKE WITH FOOD TO PREVENT STOMACH UPSET. Prov:JERI RANDALL Sr., MD 01/21/23 Cephalexin Monohydrate (Keflex) 500 Mg Cap, 500 MG PO QID for 10 Days, #40 CAP 0 Refills Prov:JERI RANDALL Sr., MD 01/21/23 Meclizine HCl (Meclizine HCl) 25 Mg Tablet, 50 MG PO TID for vertigo, #30 TAB 2 Refills Prov:JERI RANDALL Sr., MD 01/21/23 Trazodone HCl (Trazodone HCl) 100 Mg Tablet, 100 MG PO HS for 15 Days, #15 TAB Prov:LELO GIFFORD AGACNJorge 11/29/21 Reported Medications Alendronate Sodium (Alendronate Sodium) 70 Mg Tablet, 70 MG PO QWEEK, TAB 11/28/21 Fluticasone Propionate (Flonase Nasal [place]) 50 Mcg/[place], 1 SPRAY NASAL AM PRN for NASAL CONGESTION, SPRAY 11/28/21 Atorvastatin Calcium (Atorvastatin Calcium) 10 Mg Tablet, 10 MG PO HS, TAB 11/28/21 Levothyroxine Sodium (Levothyroxine) 25 Mcg Capsule, 25 MCG PO ACBKFST, CAP 11/28/21 Apixaban (Eliquis) 5 Mg Tablet, 5 MG PO BID, TAB 11/28/21 Past Medical History Past Medical History: A-Fib, Hypertension, Hypothyroid Additional Past Medical Hx: OSTEOPOROSIS Surgical History: Hysterectomy, Cholecystectomy Social History: Lives with family History: Not Applicable RN Note Reviewed/Agreed w/PFSH: Yes Review of System Dictation Constitutional: Negative for fever,chills, and weight loss positive for dizziness Eyes: Negative for injury, pain,redness, and discharge ENT: Negative for injury,pain or swelling Cardiovascular: Negative for chest pain, palpitations, and edema Respiratory: Negative for shortness of breath, cough, and wheezing, Abdomen/GI: Negative for abdominal pain, vomiting, diarrhea, and constipation positive for nausea Back: Negative for injury and pain : Negative for injury, bleeding and discharge MS/Extremity: Negative for injury and deformity Skin: Negative for rash, and discoloration Neuro: Positive for headache, generalized body weakness, denies numbness, tingling, and seizure Psych: Negative for suicide ideation, homicidal ideation, and hallucinations Initial Vital Sign VS Vital Signs Date Time Temp Pulse Resp B/P (MAP) Pulse Ox O2 Delivery O2 Flow Rate FiO2 02/06/25 20:05 97.3 94 20 168/73 99 Room Air 02/06/25 20:26 0 21 Physical Exam Dictation General: awake, alert, NAD Head/Face: Normocephalic, atraumatic Eyes: PERRL, EOMI, vision at baseline ENT: oral cavity clear, TMs clear, no signs of infection Neck: Trachea midline, supple, no nuchal rigidity Cardiovascular: RRR, normal S1/S2, No MRGs, no JVD Respiratory: CTAB, no respiratory distress, No rales or wheezes Abdomen: Soft, non-tender, non-distended, normal bowel sounds, no guarding or rebound. Skin: Warm, dry, normal turgor, no rash MS/Extremity: Pulses equal, no cyanosis, neurovascular intact, FROM Neuro: COAx4, GCS 15, strength 5/5, CN 2-12 intact, normal cerebellar exam, normal gait, Psych: Normal behavior, mood, and affect normal Extremities-trace edema without any palpable cords, Homans sign is negative HEAD IMPULSE TEST-patient has not nystagmus very subtle in the horizontal direction. Vertical-no evidence of any vertical nystagmus or I changes. Patient has catch-up saccades + Results (Laboratory/Radiology) Laboratory/Radiology Laboratory Tests Test 02/06/25 20:21 02/06/25 20:49 White Blood Count 5.8 K/uL (4.8-10.8) Red Blood Count 4.51 MIL/uL (4.00-5.50) Hemoglobin 13.8 g/dL (12.0-16.0) Hematocrit 41.0 % (36-48) Mean Corpuscular Volume 90.9 fL (79-99) Mean Corpuscular Hemoglobin 30.6 pg (27.0-33.0) Mean Corpuscular Hemoglobin Concent 33.7 g/dL (32.0-36.0) Red Cell Distribution Width 12.8 % (11.0-15.5) Platelet Count 128 K/uL (130-400) L Mean Platelet Volume 11.9 fL (7.5-10.5) H Immature Granulocyte % (Auto) 0.2 % (0-1) Neutrophils (%) (Auto) 51.9 % (40.0-77.0) Lymphocytes (%) (Auto) 35.7 % (21.0-51.0) Monocytes (%) (Auto) 9.4 % (3.0-13.0) Eosinophils (%) (Auto) 1.9 % (0.0-8.0) Basophils (%) (Auto) 0.9 % (0.0-5.0) Neutrophils # (Auto) 3.0 K/uL (1.8-7.7) Lymphocytes # (Auto) 2.1 K/uL (1.0-4.8) Monocytes # (Auto) 0.5 K/uL (0.1-1.0) Eosinophils # (Auto) 0.11 K/uL (0.00-0.70) Basophils # (Auto) 0.05 K/uL (0.00-0.20) Absolute Immature Granulocyte (auto 0.01 K/uL (0-1) Nucleated Red Blood Cells 0.0 % (0.0-0.19) Sodium Level 140 mmol/L (136-145) Potassium Level 4.1 mmol/L (3.5-5.1) Chloride Level 106 mmol/L (101-111) Carbon Dioxide Level 26 mmol/L (21-32) Blood Urea Nitrogen 25 mg/dL (7-18) H Creatinine 0.8 mg/dL (0.5-1.0) Glomerular Filtration Rate Calc 76 mL/min (>90) Random Glucose 138 mg/dL (70-105) H Total Calcium 9.3 mg/dL (8.5-10.1) Total Creatine Kinase 88 U/L (21-232) Troponin I High Sensitivity 10.6 ng/L (4-50) Urine Color COLORLESS (YELLOW) Urine Appearance CLEAR (CLEAR) Urine pH 7.0 (5.0-8.0) Urine Specific [place] 1.006 (1.001-1.031) Urine Protein NEGATIVE mg/dL (NEGATIVE) Urine Glucose (UA) NEGATIVE mg/dL (NEGATIVE) Urine Ketones NEGATIVE mg/dL (NEGATIVE) Urine Occult Blood NEGATIVE (NEGATIVE) Urine Nitrate NEGATIVE (NEGATIVE) Urine Bilirubin NEGATIVE mg/dL (NEGATIVE) Urine Urobilinogen 0.2 mg/dL (0.2-1.0) Urine Leukocyte Esterase NEGATIVE [place]ar/uL Labs Reviewed?: Yes EKG Comment: Twelve lead EKG done on 02/06/2025 at 9:31 p.m. showed a heart rate of 73, OH interval 190, QRS 89, QT/QTC 384/422. Impression normal sinus rhythm with a nonspecific ST-T changes noted in the septal leads. Early subtle RSR pattern in the V1 and V2, EKG rhythm strip shows normal sinus rhythm with somewhat of a low voltage. Interpreted by ER MD Dr. Lundy CT Scan Comment: REASON: Severe dizziness and vertigo symptoms -likely BPPV. not central ORDERING PHYSICIAN: MEGHANA LUNDY MD PROCEDURE: HEAD WO - CT HEAD/BRAIN W/O CONTRAST EXAM: CT Head Without IV contrast. CLINICAL HISTORY: Severe dizziness and vertigo symptoms, likely BPPV. TECHNIQUE: Axial computed tomography images of the head/brain without intravenous contrast. COMPARISON: None provided. FINDINGS: BRAIN: Age-appropriate cerebral atrophy. Mild periventricular chronic small vessel ischemic changes. No evidence of acute hemorrhage. No mass lesion. No CT evidence for acute territorial infarct. No midline shift or extra-axial collections. VENTRICLES: No hydrocephalus. ORBITS: The orbits are unremarkable. SINUSES AND MASTOIDS: The paranasal sinuses and mastoid air cells are clear. BONES: No fracture. SOFT TISSUES: Unremarkable. IMPRESSION: No acute intracranial abnormality. /[place] DICTATED BY: OLIVIER HAWLEY Jr., MD DATE: 02/07/2517 ELECTRONICALLY SIGNED BY: OLIVIER HAWLEY Jr., MD DATE: 02/07/2517 ED Course ED Course Orders Procedure Category Date Status Time Cardiac Panel LAB 02/06/25 Complete 20:14 Cbc With Differential LAB 02/06/25 Complete 20:14 Basic Metabolic Panel LAB 02/06/25 Complete 20:14 Urinalysis Profile LAB 02/06/25 Complete 20:14 12 Lead Ekg Tracing- EKG 02/06/25 Complete Technical 21:24 0.9% Nacl 500ml PHA 02/06/25 Complete Iv.Soln (Ns 500ml 21:30 Methylprednisolone PHA 02/06/25 Complete Succ 40mg (Solu-Medro 21:30 Meclizine Hcl 12.5 Mg PHA 02/06/25 Complete (Antivert 12.5 Mg) 21:30 Ct Head/Brain W/O CT 02/06/25 Resulted Contrast 21:50 Current Medications Medications (Trade) Dose Ordered Sig/Elaine Route PRN Reason Start Time Stop Time Status Last Admin Dose Admin Meclizine HCl (ANTIvert 12.5 mg) 12.5 mg ONCE ONCE PO 02/06/25 21:30 02/06/25 21:31 DC 02/06/25 21:56 Methylprednisolone Sodium Succinate (Solu-medROL 40MG) 40 mg ONCE ONCE IVP 02/06/25 21:30 02/06/25 21:31 DC 02/06/25 21:55 Sodium Chloride 500 ml @ 0 mls/hr ONCE ONCE IV 02/06/25 21:30 02/06/25 21:31 DC 02/06/25 21:40 Vital Signs Date Time Temp Pulse Resp B/P (MAP) Pulse Ox O2 Delivery O2 Flow Rate FiO2 02/06/25 20:26 97.3 82 18 142/82 98 Room Air* 0 21 02/06/25 20:05 97.3 94 20 168/73 99 Room Air Medical Decision Making MDM Differential diagnosis: Volume depletion Benign positional vertigo, labyrinthitis, Meniere's disease, vertebrobasilar insufficiency, aortic stenosis, arrhythmia 77-year-old female presents to [facility] emergency department complaining of dizziness. Discusses that over the course of the last day has become increasingly dizzy which is accompanied by worsening in particular with changes in position. Today accompanied with the dizziness is nausea, dryness of the mouth, becoming short of breath after walking short distances. Denies chest pain pleurisy or dyspnea. There has been no dulce emesis there has been no diarrhea. The patient does experience a fullness over the bladder, however denies urgency frequency dysuria pyuria hematuria. The remainder of the review of systems is negative. Patient stated that around 6 p.m. ate a [employer] bar she was laying in bed when she all of a sudden started feeling severe dizziness with a sensation of all the items in the room spinning. She has had similar episode in the past many years ago. No history of any blurred vision facial droop diplopia motor weakness or seizure activity. No history of any neck pain. No history of any hearing loss. No fever chills. She also admits to a headache mostly in the bitemporal area frontal and vertex. No halos or photosensitivity. No lacrimation or nasal drainage. Temperature 97.4 pulse 94 respirations 20 blood pressure 168/73 with a pulse oximetry of 99% on room air Chronic medical problems include history of atrial fibrillation was on Eliquis per Dr. Houston Stephenson, hypertension, hypothyroidism, history of osteoporosis. She had similar episode of vertigo many years ago. surgical history includes cholecystectomy and a partial hysterectomy. 9:20 p.m.Labs reviewed CBC shows platelet count of 128. BNP 7 shows a BUN and creatinine of 25 and 0.8. Urinalysis is unremarkable. Although my clinical index of suspicion and based on my assessment, I strongly favor the diagnosis of BPPV, to reassure her I have requested a CT scan of the head 11:00 p.m. patient feels significantly improved and wants to go home She is not suicidal or has a any intention. She lost her 3 years ago after 60 years of being together. He was tearful during the conversation and I explained to her that it would be best for her to address her low-grade depression. I updated her on the head CT scan of the head which is unremarkable for any intracranial events or hemorrhage. Rationale: Tests considered and ordered secondary to shared decision making include: Labs and head CT Previous outside records reviewed: Old ER visits. Risk of complication and/or morbidity or mortality of patient management: None Medications-Per medication reconciliation Need for hospitalization: Patient does not meet criteria for hospitalization. Need for emergency major/minor surgery: No There are no social concerns with this patient. Prescription drug management Prescriptions will include symptomatic care Patient's prior external medical records from other ER visits were reviewed by me as indicated. Prior testing and results from previous visits were reviewed. Prior tests were taken into account with medical decision making and resource utilization, independent historian/historians were used to obtain complete medical history. I independently interpreted the test that were performed, results were reviewed by me and considered findings on radiology if ordered. Medical management and examination interpretation discussions were had by me with other qualified healthcare professionals as indicated for the patient's care. Problem List Problem List: (1) BPPV (benign paroxysmal positional vertigo) (2) Vertigo DX & DISP Disposition: Discharge Departure Impression: Primary Impression: BPPV (benign paroxysmal positional vertigo) Additional Impression: Vertigo Condition: Stable Scripts Prednisone (Prednisone) 20 Mg Tablet 1 TAB PO AD for 6 Days, #14 TAB 0 Refills TAKE 1 TAB BY MOUTH THREE TIMES PER DAY X3 DAYS, THEN TAKE 1 TAB BY MOUTH TWICE A DAY X2 DAYS, THEN TAKE 1 TAB BY MOUTH ONCE A DAY X1 DAY. Prov: MEGHANA LUNDY MD 02/06/25 Meclizine HCl (Meclizine HCl) 25 Mg Tablet 25 MG PO TID for vertigo for 10 Days, #30 TAB 0 Refills Prov: MEGHANA LUNDY MD 02/06/25 Additional Instructions: Patient and the caregiver have been informed of all the diagnostic tests and the imaging conducted during the today's visit to the emergency room and has verbalized understanding of the results I have personally reviewed and interpreted all diagnostic exams performed here in the ER today as well as the vital signs documented by the nursing staff. The patient is now being discharged to home and should follow up with the primary care physician or the specialist as directed by the ER staff. Follow-up with primary care provider in 1 to 2 days. Take medications as directed here in the emergency room. Okay to continue home medications unless otherwise discussed during your visit in the emergency room today. Return to your nearest emergency room if symptoms worsen or if there is no improvement. Call 911 if you need immediate assistance. Take Tylenol or Motrin [id number] as needed and if no contraindications are present. Increase oral hydration. A wound culture or urine culture was ordered here in the emergency room department please follow-up with primary care provider and advise them to get repeat ports from our facility. If you had any Kaleb wrap/splints that were applied here, please do not remove them until you see your primary care or specialty. I had a long discussion with Ms. Reynolds and answered all her questions. She will follow up with her primary care physician to address issues of depression. If symptoms do not improve she may need vestibular therapy and Edd maneuver Referrals: NICANOR JEREZ MD (PCP) MEGHANA LUNDY MD Feb 06, 2025 20:16
[2025-02-06 20:29] LABS: IMMATURE GRANULOCYTE ABSOLUTE 0.01 K/uL (0-1); NUCLEATED RED BLOOD CELLS 0.0 % (0.0-0.19); PLATELET COUNT (AUTO) 128 K/uL (130-400); RED BLOOD CELL COUNT(AUTO) 4.51 MIL/uL (4.00-5.50); RED CELL DISTRIBUTION WIDTH 12.8 % (11.0-15.5); WHITE BLOOD COUNT (AUTO) 5.8 K/uL (4.8-10.8)
[2025-02-06 20:36] LABS: CREATININE 0.8 mg/dL (0.5-1.0); GLOMERULAR FILTR. RATE CALC 76.0 mL/min (>90); GLUCOSE,RANDOM 138.0 mg/dL (70-105); SODIUM SERUM 140.0 mmol/L (136-145); UREA NITROGEN, BLOOD 25.0 mg/dL (7-18)
[2025-02-06 20:44] LABS: CREATINE KINASE, TOTAL 88.0 U/L (21-232)
[2025-02-06 21:00] LABS: ADD UA MICROSCOPIC NO; APPEARANCE,URINE CLEAR (CLEAR); GLUCOSE, URINE (UA) NEGATIVE (NEGATIVE); LEUKOCYTE ESTERASE ,URINE NEGATIVE Leu/uL (NEGATIVE); NITRATE,URINE NEGATIVE (NEGATIVE); OCCULT BLOOD,URINE NEGATIVE (NEGATIVE)
[2025-02-06] MEDS: 0.9% NACL 500ML IV.SOLN 500 ML IV ONE (21:40)
--- NOTE | 2025-02-06 21:40 | EKG ---
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
[2025-02-06] MEDS: Solu-medROL 40MG VIAL IVP ONE (21:55)
[2025-02-06] MEDS ORDERED: PRED20TA3 PO (23:03)
[2025-02-06] MEDS ORDERED: MECL-302 PO (23:03)
--- NOTE | 2025-02-06 23:18 | HMCIMG ---
EXAM: CT Head Without IV contrast. CLINICAL HISTORY: Severe dizziness and vertigo symptoms, likely BPPV. TECHNIQUE: Axial computed tomography images of the head/brain without intravenous contrast. COMPARISON: None provided. FINDINGS: BRAIN: Age-appropriate cerebral atrophy. Mild periventricular chronic small vessel ischemic changes. No evidence of acute hemorrhage. No mass lesion. No CT evidence for acute territorial infarct. No midline shift or extra-axial collections. VENTRICLES: No hydrocephalus. ORBITS: The orbits are unremarkable. SINUSES AND MASTOIDS: The paranasal sinuses and mastoid air cells are clear. BONES: No fracture. SOFT TISSUES: Unremarkable. IMPRESSION: No acute intracranial abnormality. /[place]
[2025-02-07 00:22] VITALS: BP 136/78; PULSE 78; RESP 18; TEMP 97.9; O2SAT 99
== END 2025-02-07 00:25 | disposition home or self-care (01) ==
LOC: EDH 20:02
DX: H81.10 Benign paroxysmal vertigo, unspecified ear (principal); E03.9 Hypothyroidism, unspecified; I10 Essential (primary) hypertension; I48.91 Unspecified atrial fibrillation; Z79.01 Long term (current) use of anticoagulants; Z90.49 Acquired absence of other specified parts of digestive tract; Z90.710 Acquired absence of both cervix and uterus
CPT/HCPCS: 99285; 96374; 70450; 82550; 84484; 80048; 85025; 81003; 36415; 93005; J2919; J7040